=== PATIENT | male | born 1980 | race African-American/Black ===

== ENCOUNTER 2019-07-03 12:13 | Inpatient (IN) | payer OTHER ==
[~2019-07-03] VITALS: Ht 172.7 cm; Wt 70.3 kg
[2019-07-03] MEDS ORDERED: LISINOPRIL20 MG ORAL (12:14)
[2019-07-03] MEDS ORDERED: METFORMIN HCL500 M4 ORAL (12:14)
[2019-07-03 12:17] VITALS: BP 185/117
--- NOTE | 2019-07-03 12:17 | NUR ---
ED Nurse Note: PT FROM HOME AND BROUGHT IN BY AMBULANCE CAME IN DUE TO BODY WEAKNESS X 3 DAYS. DENIES DIARRHEA OR VOMITING BUT STATES THAT HE FELT NAUSEOUS THIS MORNING. HX OF DM. AAO X4, FOLLOWS COMMANDS, SKIN IS WARM AND SLIGHLTY DIAPHORETIC. DR BYRNE AT THE BED SIDE.
--- NOTE | 2019-07-03 12:25 | Emergency Room Report ---
History of Present Illness General Chief Complaint: Generalized Weakness Source: Patient Present Illness HPI Patient presents with weakness. He has been vomiting and had diarrhea. He has had a slight cough but denies chest pain. 2 months ago he got a flu vaccination. The patient is diabetic and hypertensive. He takes metformin and lisinopril. He was unable to take his blood pressure medication this morning. He denies any blood in his stool. This nonproductive cough. Denies chest pain. He feels weak and dizzy when he stands. Patient denies body pain. He did take medicine for diabetes. No polyuria or polydipsia. No sore throat, chest pain, dysuria, shortness of breath, joint pain, rashes, depression, anxiety, visual changes, headache. No recent travel or unusual foods. Allergies: Coded Allergies: No Known Allergies (Unverified , 07/03/19) Patient History Past Medical History: see triage record Social History: Denies: smoking, alcohol use, drug use Social History Narrative Not working Reviewed Nursing Documentation: PMH: Agreed; PSxH: Agreed Nursing Documentation-PMH Hx Hypertension: Yes Hx Diabetes: Yes Review of Systems All Other Systems: negative except mentioned in HPI Physical Exam Vital Signs Date Time Temp Pulse Resp B/P (MAP) Pulse Ox O2 Delivery O2 Flow Rate FiO2 07/03/19 12:07 98.2 134 19 179/104 (129) 100 Room Air Skin temperature feels hotter than recorded temperature. Sp02 EP Interpretation: reviewed, normal General Appearance: mild distress, other - Diaphoretic Head: normocephalic Eyes: bilateral eye normal inspection, bilateral eye PERRL, bilateral eye EOMI ENT: moist mucus membranes Neck: supple Respiratory: chest non-tender, lungs clear, normal breath sounds Cardiovascular #1: no edema, tachycardia Cardiovascular #2: 2+ radial (R) Gastrointestinal: normal inspection, non tender, no mass, non-distended, decreased bowel sounds Genitourinary: no CVA tenderness Musculoskeletal: back normal, normal range of motion, gait/station normal Neurologic: alert, oriented x3, grossly normal Psychiatric: mood/affect normal Skin: no rash, diaphoresis, warm/dry Procedures Critical Care Time Critical Care Time Total Critical Care Time: 45 min bedside evaluation and treatment excludes procedures (EKG). Reason for critical care: Sepsis resuscitation and treatment Possible complications: hypotension, hypertension, VT, shock, arrhythmias, metabolic acidosis, end organ damage, respiratory failure. Interventions: Fluid bolus and hydration, 4 antibiotics, Tylenol repeat evaluations Course: Patient presents with weakness fever chills nausea vomiting diarrhea. Initial evaluation for sepsis with fluid resuscitation begun. Lactic acid returns extremely elevated. Antibiotics begun to cover GI source. Repeat evaluation after urinalysis and Levaquin added. Blood pressure high in consideration of treatment however in the face of sepsis reluctant to do so. Blood pressure and pulse rate improved with treatment. Discussed with admitting physician. Discussed with family. Repeat lactate improved but still elevated. Consultations: nursing staff, EMS, family, admitting physician Performed by: Dr. Porter Tolerated well condition = critical Medical Decision Making Diagnostic Impression: Primary Impression: Sepsis Qualified Codes: A41.9 - Sepsis, unspecified organism Additional Impressions: UTI (urinary tract infection) Qualified Codes: N39.0 - Urinary tract infection, site not specified Diabetes Qualified Codes: E11.9 - Type 2 diabetes mellitus without complications HTN (hypertension) Qualified Codes: I10 - Essential (primary) hypertension Nausea vomiting and diarrhea ER Course Patient presents with febrile illness with nausea vomiting diarrhea with history of diabetes. Differential includes sepsis, gastroenteritis, other occult infection, diabetic ketoacidosis amongst others. Evaluation with EKG, chest x-ray and labs. Fluid bolus ordered along with Tylenol. Abdomen is nonsurgical at this time. Abdominal exam is nonsurgical at this time. EKG was sinus tachycardia. Chest x-ray no infiltrates. Labs with elevated white count. Lactic acid 7.2. SEPSIS RE-EVALUATION: Called with lactic acid 7. Fluid boluses administered. Patient's mentation is good. Other labs are pending. Starting broad-spectrum antibiotics to cover GI source. I, Pastor Porter MD, Performed the Sepsis Re- evaluation at 13:15. Pyuria. Will add levaquin. Repeat lactic acid better. Continued fluid resuscitation. BP high. 160/90. Still tachycardic. I am reluctant to treat BP as patient is septic and seems to need increased cardiac output. 14:49. Blood pressure improving and pulse rate improving. Discussed findings with patient. Patient admitted to stepdown unit Dr. Winter. Laboratory Tests Test 07/03/19 12:30 07/03/19 13:20 07/03/19 13:45 White Blood Count 12.5 K/UL (4.8-10.8) H Red Blood Count 4.90 M/UL (4.70-6.10) Hemoglobin 15.8 G/DL (14.2-18.0) Hematocrit 46.2 % (42.0-52.0) Mean Corpuscular Volume 94 FL (80-99) Mean Corpuscular Hemoglobin 32.2 PG (27.0-31.0) H Mean Corpuscular Hemoglobin Concent 34.1 G/DL (32.0-36.0) Red Cell Distribution Width 11.2 % (11.6-14.8) L Platelet Count 272 K/UL (150-450) Mean Platelet Volume 6.1 FL (6.5-10.1) L Neutrophils (%) (Auto) % (45.0-75.0) Lymphocytes (%) (Auto) % (20.0-45.0) Monocytes (%) (Auto) % (1.0-10.0) Eosinophils (%) (Auto) % (0.0-3.0) Basophils (%) (Auto) % (0.0-2.0) Differential Total Cells Counted 100 Neutrophils % (Manual) 81 % (45-75) H Lymphocytes % (Manual) 16 % (20-45) L Monocytes % (Manual) 3 % (1-10) Eosinophils % (Manual) 0 % (0-3) Basophils % (Manual) 0 % (0-2) Band Neutrophils 0 % (0-8) Platelet Estimate Adequate Platelet Morphology Normal Red Blood Cell Morphology Normal Prothrombin Time 10.6 SEC (9.30-11.50) Prothrombin Time INR 1.0 (0.9-1.1) PTT 26 SEC (23-33) Sodium Level 144 MMOL/L (136-145) Potassium Level 3.5 MMOL/L (3.5-5.1) Chloride Level 102 MMOL/L (98-107) Carbon Dioxide Level 26 MMOL/L (21-32) Anion Gap 16 mmol/L (5-15) H Blood Urea Nitrogen 16 mg/dL (7-18) Creatinine 1.2 MG/DL (0.55-1.30) Estimate Glomerular Filtration Rate > 60 mL/min (>60) Glucose Level 131 MG/DL (74-106) H Lactic Acid Level 7.20 mmol/L (0.4-2.0) H 5.10 mmol/L (0.66-2.22) H Calcium Level 9.4 MG/DL (8.5-10.1) Magnesium Level 1.4 MG/DL (1.8-2.4) L Total Bilirubin 0.4 MG/DL (0.2-1.0) Aspartate Amino Transferase (AST) 34 U/L (15-37) Alanine Aminotransferase (ALT) 47 U/L (12-78) Alkaline Phosphatase 45 U/L (46-116) L Total Creatine Kinase 62 U/L (26-308) Troponin I 0.000 ng/mL (0.000-0.056) Pro-B-Type Natriuretic Peptide 8 pg/mL (0-125) Total Protein 7.9 G/DL (6.4-8.2) Albumin 4.0 G/DL (3.4-5.0) Globulin 3.9 g/dL Albumin/Globulin Ratio 1.0 (1.0-2.7) Lipase 132 U/L (73-393) Urine Color Yellow Urine Appearance Clear Urine pH 5 (4.5-8.0) Urine Specific [place]ion 1.025 (1.005-1.035) Urine Protein 3+ (NEGATIVE) H Urine Glucose (UA) Negative (NEGATIVE) Urine Ketones 2+ (NEGATIVE) H Urine Blood 2+ (NEGATIVE) H Urine Nitrite Negative (NEGATIVE) Urine Bilirubin Negative (NEGATIVE) Urine Urobilinogen Normal MG/DL (0.0-1.0) Urine Leukocyte Esterase 1+ (NEGATIVE) H Urine RBC 2-4 /HPF (0 - 0) H Urine WBC 5-10 /HPF (0 - 0) H Urine Squamous Epithelial Cells Occasional /LPF Urine Bacteria Occasional /HPF (NONE) Microbiology Date/Time Source Procedure Growth Status 07/03/19 12:30 Nasal Nares - Final Complete 07/03/19 12:30 Nasal Nares - Final Complete EKG Diagnostic Results Rate: tachycardiac Rhythm: NSR ST Segments: no acute changes Rhythm Strip Diag. Results EP Interpretation: yes Rhythm: no PVC's, no ectopy, other - ST Chest X-Ray Diagnostic Results Chest X-Ray Diagnostic Results : Chest X-Ray Ordered: Yes # of Views/Limited/Complete: 1 View Indication: Other EP Interpretation: Yes Interpretation: no consolidation, no effusion, no pneumothorax Impression: No acute disease Electronically Signed by: Electronically signed by Pastor Porter MD Last Vital Signs Date Time Temp Pulse Resp B/P (MAP) Pulse Ox O2 Delivery O2 Flow Rate FiO2 07/03/19 17:47 Room Air 07/03/19 17:30 98.3 81 16 145/86 97 Status: improved Disposition: ADMITTED INPATIENT Condition: Critical Pastor Porter MD Jul 03, 2019 12:25
[2019-07-03] MEDS ORDERED: Sodium Chloride 1,900 ML IVLG ONE (12:30)
[2019-07-03 12:43] LABS: HEMATOCRIT 46.2 % (42.0-52.0); HEMOGLOBIN 15.8 G/DL (14.2-18.0); MEAN CORPUSCULAR VOLUME 94 FL (80-99); PLATELET COUNT 272 K/UL (150-450); RED CELL DISTRIBUTION WIDTH 11.2 % (11.6-14.8); WHITE BLOOD COUNT 12.5 K/UL (4.8-10.8)
--- NOTE | 2019-07-03 12:46 | NUR ---
ED Nurse Note: COLLECTED BLOOD AND FLU SWAB THEN SENT.
[2019-07-03 12:57] LABS: ANION GAP 16 mmol/L (5-15); BLOOD UREA NITROGEN 16 mg/dL (7-18); CALCIUM 9.4 MG/DL (8.5-10.1); CARBON DIOXIDE 26 MMOL/L (21-32); CHLORIDE 102 MMOL/L (98-107); CREATININE 1.2 MG/DL (0.55-1.30); POTASSIUM 3.5 MMOL/L (3.5-5.1); SODIUM 144 MMOL/L (136-145)
[2019-07-03 13:08] LABS: ALANINE AMINOTRANSFERASE 47 U/L (12-78); ALKALINE PHOSPHATASE 45 U/L (46-116); ASPARTATE AMINO TRANSFERASE 34 U/L (15-37); BILIRUBIN,TOTAL 0.4 MG/DL (0.2-1.0); CREATINE KINASE 62 U/L (26-308)
--- NOTE | 2019-07-03 13:12 | NUR ---
ED Nurse Note: pt reminded to provide urine sample.
[2019-07-03] MEDS ORDERED: Vancomycin 1 GM in NS 275 ML IVPB ONE (13:30)
[2019-07-03] MEDS ORDERED: Piperacillin/Tazobactam 3.375 GM in NS 110 ML IVPB ONE (13:30)
--- NOTE | 2019-07-03 13:46 | NUR ---
ED Nurse Note: COLLECTED URINE THEN SENT.
[2019-07-03 14:16] LABS: APPEARANCE,URINE CLEAR; BILIRUBIN, URINE NEGATIVE (NEGATIVE); GLUCOSE, URINE (UA) NEGATIVE (NEGATIVE); KETONES,URINE 2+ (NEGATIVE); LEUKOCYTE ESTERASE ,URINE 1+ (NEGATIVE); NITRITE,URINE NEGATIVE (NEGATIVE); PH,URINE 5 (4.5-8.0); PROTEIN,URINE 3+ (NEGATIVE); UROBILINOGEN,URINE NORMAL MG/DL (0.0-1.0)
[2019-07-03 14:24] LABS: COLOR,URINE YELLOW
--- NOTE | 2019-07-03 14:29 | Diagnostic Imaging Report ---
Indication: Chest pain Technique: One view of the chest Comparison: none Findings: Lungs and pleural spaces are clear. Heart size is normal. Impression: No acute process
[2019-07-03 14:30] VITALS: BP 160/93
--- NOTE | 2019-07-03 14:48 | NUR ---
ED Nurse Note: DR BYRNE AWARE OF BP 160/93.
[2019-07-03 16:20] VITALS: BP 149/92
--- NOTE | 2019-07-03 17:27 | NUR ---
ED Nurse Note: REPORT GIVEN TO DAVID ANDERSEN OF [facility].
--- NOTE | 2019-07-03 17:30 | NUR ---
NURSE NOTES: Received PT and report from CHRISTY Harris RN; PT A/O x 4; RA no respiratory distress noted; BP 168/115; weight of PT 163.2lbs; HR 90; T 99.2 axillary; able to ambulate by self to bathroom; placed on cardiac monitoring; head to toe assessment done no wounds present; PT has HX of DM; HTN; PT report he is on Lisinopril 20mg once daily; Metformin 500mg BID. PT is very cooperative; non combative; PT stuff is at bedside. Will continue to monitor PT.
--- NOTE | 2019-07-03 18:43 | NUR ---
NURSE NOTES: Called MD Maggy for orders; covering MD slava Butt MD; brief PT admitting dx / hx given; asked for call back for orders for PT. VICTOR M Rose made aware.
--- NOTE | 2019-07-03 19:25 | NUR ---
HAND-OFF: Report and PT given to NATHALY Agosto; endorsed message left with MD Maggy; sergio Butt MD covering tonight, awaiting MD orders for PT.
--- NOTE | 2019-07-03 19:35 | NUR ---
NURSE NOTES: Received patient from NATHALY Talavera. patient is observed resting in bed, AO X4, denies pain at this time. patient is on room air, tolerating well. no s/sx of respiratory distress noted at this time. awake overnight monitor shows NSR at this time, with current heart rate of 74. no s/sx of acute cardiac distress noted. urinal at bedside. LAC 20 g IV site is patent and intact, asymptomatic. bed in lowest position and locked, siderails up X3, call light within reach. will follow up with MD regarding admission orders. patient is in stable condition. will continue to monitor.
--- NOTE | 2019-07-03 19:42 | NUR ---
NURSE NOTES: Left message for Dr. Winter regarding admission orders. awaiting call back.
[2019-07-03 20:00] VITALS: BP 156/93
--- NOTE | 2019-07-03 20:51 | NUR ---
NURSE NOTES: left follow up message for Dr. Winter regarding admission orders. awaiting call back.
--- NOTE | 2019-07-03 21:17 | NUR ---
NURSE NOTES: Received admission orders from Dr. Winter. will carry out.
[2019-07-03] MEDS: Piperacillin/Tazobactam 3.375 GM in NS 110 ML IVPB SCH (23:50)
[2019-07-04] VITALS (7 sets, daily range): BP systolic 149–186; BP diastolic 87–110
[2019-07-04 02:07] LABS: BASOPHILS % (AUTO) 0.8 % (0.0-2.0); HEMATOCRIT 40.5 % (42.0-52.0); LYMPHOCYTES % (AUTO) 9.9 % (20.0-45.0); MEAN CORPUSCULAR VOLUME 94 FL (80-99); MONOCYTES % (AUTO) 9.3 % (1.0-10.0); PLATELET COUNT 187 K/UL (150-450); RED BLOOD COUNT 4.32 M/UL (4.70-6.10); RED CELL DISTRIBUTION WIDTH 11.2 % (11.6-14.8); WHITE BLOOD COUNT 9.3 K/UL (4.8-10.8)
[2019-07-04 02:18] LABS: ANION GAP 7 mmol/L (5-15); BLOOD UREA NITROGEN 7 mg/dL (7-18); CALCIUM 8.1 MG/DL (8.5-10.1); CARBON DIOXIDE 29 MMOL/L (21-32); CHLORIDE 103 MMOL/L (98-107); POTASSIUM 2.9 MMOL/L (3.5-5.1); SODIUM 139 MMOL/L (136-145)
--- NOTE | 2019-07-04 03:04 | NUR ---
NURSE NOTES: left message informing Dr. Winter of patient's potassium level of 2.9. awaiting call back.
--- NOTE | 2019-07-04 03:21 | NUR ---
NURSE NOTES: Received orders from Dr. Winter regarding patient's potassium level. will carry out.
[2019-07-04] MEDS: Vancomycin 750mg/NS 275ml IVPB SCH ×4 (04:43→17:27)
[2019-07-04] MEDS: NovoLOG Insulin Flexpen SUBQ SCH ×4 (06:30→21:00)
[2019-07-04] MEDS: Piperacillin/Tazobactam 3.375 GM in NS 110 ML IVPB SCH ×3 (06:42→21:54)
--- NOTE | 2019-07-04 08:30 | NUR ---
HAND-OFF: Report given to NATHALY Fraser. patient is in stable condition.
[2019-07-04] MEDS: metFORMIN 500mg tab ORAL SCH ×2 (09:21→17:28)
[2019-07-04] MEDS: Lisinopril 20mg tab ORAL SCH (09:21)
[2019-07-04] MEDS: Heparin 5000 units/ml inj SUBQ SCH ×2 (09:23→20:46)
--- NOTE | 2019-07-04 15:23 | NUR ---
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 98.6 HR 116 RR 15 B/P 160/93 WBC 12.4 AGAP 16 MAGNESIUM 1.4 UA+ PROTEIN,KETONES,BLOOD,LEUKOCYTE ESTERASE,RBC,WBC CXR= NO ACUTE DISEASE IS: IV BOLUS NS X 2 LITERS ZOSYN IV VANCO IV FLAGYL IV ZOFRAN IV TYLENOL PO ADMITTED TO STEP DOWN@ 1730 STEP DOWN STATUS8 DCP RETURN HOME
--- NOTE | 2019-07-04 15:30 | History and Physical Report ---
DATE OF ADMISSION: 07/03/2019 REASON FOR ADMISSION: Possible sepsis. HISTORY OF PRESENT ILLNESS: This is a 39-year-old male presented to the emergency room. The patient noted to have vomiting and diarrhea. The patient also had slight cough. The patient does have history of diabetes and hypertension. Currently is comfortable. No abdominal pain. No further diarrhea. The patient felt somewhat dizzy. The patient's care discussed and reviewed. PAST MEDICAL HISTORY: Essentially negative. MEDICATIONS: Reviewed and reconciled. ALLERGIES: Reviewed and reconciled. SOCIAL HISTORY: Nonsmoker and nondrinker. No drug use. REVIEW OF SYSTEMS: All 10 points reviewed and otherwise negative. FAMILY HISTORY: Otherwise noncontributory to the above with the exception of negative heart disease. PHYSICAL EXAMINATION: GENERAL: A well-developed male, otherwise comfortable. VITAL SIGNS: Reviewed. Blood pressure elevated 157/87, temperature 99.2, pulse 65, respirations 18. HEENT: Negative. Extraocular movements grossly intact. NECK: Supple. LUNGS: Fairly clear and symmetric. CARDIAC: S1, S2. Regular rate and rhythm. ABDOMEN: Soft, nontender, nondistended. EXTREMITIES: No edema. LABORATORY DATA: Reviewed. MEDICATIONS: Reviewed. IMPRESSION: 1. Diabetes. 2. Hypertension. 3. Likely viral syndrome. Doubt sepsis with noted vomiting and diarrhea. Possible gastroenteritis. 4. History of flu vaccination. RECOMMENDATIONS: Supportive care. Empiric antibiotics. Follow up laboratories. ID evaluation for clearance. Monitor and maintain medications. IV hydration and will hope to improve and discharge once cleared by Infectious Disease. Thom Winter M.D. DR: KAILA JOB#: [id number] CC:
--- NOTE | 2019-07-04 16:00 | Consultation ---
DATE OF CONSULTATION: 07/04/2019 INFECTIOUS DISEASES CONSULTATION CONSULTING PHYSICIAN: Nii Garcia M.D. REFERRING PHYSICIAN: Thom Winter M.D. REASON FOR CONSULTATION: Possible gastroenteritis and urinary tract infection. HISTORY OF PRESENTING ILLNESS: This is a 39-year-old gentleman with history of hypertension who comes in with cough along with shortness of breath. He also had some nausea, vomiting, and diarrhea. An Infectious Diseases consultation has been obtained for possible gastroenteritis. PAST MEDICAL HISTORY: 1. History of diabetes. 2. History of hypertension. SOCIAL HISTORY: He does not smoke. He drinks alcohol socially. No history of drug use. The patient denies eating any poorly cooked food. FAMILY HISTORY: Noncontributory. REVIEW OF SYSTEMS: RESPIRATORY: He denies any fever or chills. He has cough. He has shortness of breath. No chest pain. CARDIAC: No chest pain. No palpitations. No dizziness. No syncope. GASTROINTESTINAL: He had nausea and vomiting. He also has diarrhea. MEDICATIONS: As an inpatient, he is on lisinopril, metformin, subcutaneous heparin, Protonix, insulin, vancomycin, Zosyn, Tylenol, clonidine, Mylanta. ALLERGIES: No known drug allergies. PHYSICAL EXAMINATION: VITAL SIGNS: Temperature of 98.1, T-max of 99.2, pulse 71, respiratory of 20, blood pressure 144/99, O2 saturation of 98%. HEENT: Pupils equally reactive to light and accommodation. Mouth appears clean without thrush. NECK: Supple. No adenopathy. No JVD. CARDIOVASCULAR: Regular rate and rhythm. No murmurs. LUNGS: Clear to auscultation bilaterally. No crackles. No wheezes. ABDOMEN: Soft and nontender. No organomegaly. EXTREMITIES: No cyanosis, no clubbing, no edema. LABORATORY DATA: White count of 12.5 on 07/03/2019, white count 9.3 today, hemoglobin 14, hematocrit 40.5, MCV 94, platelet count of 187, neutrophils of 79%. Sodium 139, potassium 2.9, chloride 103, bicarb 29, BUN 7, creatinine 1, glucose 103. Calcium 8.1. Total bilirubin 0.4, AST 34, ALT 47, alkaline phosphatase 45. CK of 62. Troponin 0. Total protein 7.9. Albumin 4. Lipase of 132. UA showing 5 to 10 white cells. Chest x-ray showing no acute process. ASSESSMENT: 1. This is a 39-year-old gentleman with diabetes and hypertension, who comes in with nausea, vomiting, and diarrhea along with cough and shortness of breath with concern regarding gastroenteritis as a possibility. 2. We would also like to rule out urinary tract infection as a possibility. 3. Diabetes. 4. Hypertension. PLAN: 1. Continue vancomycin and Zosyn. 2. We will order stool for C. difficile colitis and stool cultures. 3. We will order urine cultures. 4. We will follow up cultures and adjust antibiotics accordingly. I would like to thank, Dr. Winter, for this consultation. Nii Garcia M.D. DR: TRENTON JOB#: [id number] CC: Thom Winter M.D.; Fax#: [phone]
--- NOTE | 2019-07-04 19:10 | NUR ---
HAND-OFF: Report given to NATHALY Delvalle,patient asleep,normal sinus rythm.
--- NOTE | 2019-07-04 19:30 | NUR ---
NURSE NOTES: Received Pt is resting on the bed and awake alert. IV site intact and no sign of infiltration noted. on running with NS@100cc/hr. Denied pain at this time. On Tele monitor with SR. Explained Pt regarding stool and urine sample collection and verbally understanding. Placed fall precaution. Will continue to care plan.
--- NOTE | 2019-07-04 20:30 | NUR ---
NURSE NOTES: PT's BP keeps high 170-180/100-110mmHg. Left message to Dr. Winter and awaiting call back.
--- NOTE | 2019-07-04 21:25 | NUR ---
NURSE NOTES: Get call back from Dr. Marie and new order received.
[2019-07-05] VITALS: BP 159/98
--- NOTE | 2019-07-05 02:00 | NUR ---
NURSE NOTES: Pt is sleeping on the bed and no sign of acute distress noted.
[2019-07-05 04:00] VITALS: BP 152/98
[2019-07-05 04:18] LABS: BASOPHILS % (AUTO) 0.8 % (0.0-2.0); EOSINOPHILS % (AUTO) 4.2 % (0.0-3.0); HEMATOCRIT 40.5 % (42.0-52.0); HEMOGLOBIN 14.2 G/DL (14.2-18.0); LYMPHOCYTES % (AUTO) 15.9 % (20.0-45.0); MEAN CORPUSCULAR VOLUME 94 FL (80-99); MONOCYTES % (AUTO) 10.6 % (1.0-10.0); NEUTROPHILS % (AUTO) 68.5 % (45.0-75.0); PLATELET COUNT 157 K/UL (150-450); RED BLOOD COUNT 4.29 M/UL (4.70-6.10); RED CELL DISTRIBUTION WIDTH 11.3 % (11.6-14.8); WHITE BLOOD COUNT 5.7 K/UL (4.8-10.8)
[2019-07-05 04:44] LABS: ANION GAP 6 mmol/L (5-15); BLOOD UREA NITROGEN 7 mg/dL (7-18); CALCIUM 8.5 MG/DL (8.5-10.1); CARBON DIOXIDE 29 MMOL/L (21-32); CHLORIDE 103 MMOL/L (98-107); POTASSIUM 2.9 MMOL/L (3.5-5.1); SODIUM 137 MMOL/L (136-145)
[2019-07-05] MEDS ORDERED: Vancomycin 750mg/NS 275ml IVPB SCH ×2 (05:15)
[2019-07-05] MEDS: NovoLOG Insulin Flexpen SUBQ SCH ×4 (06:30→21:00)
[2019-07-05] MEDS: Piperacillin/Tazobactam 3.375 GM in NS 110 ML IVPB SCH ×3 (06:49→21:26)
--- NOTE | 2019-07-05 06:57 | NUR ---
NURSE NOTES: Noted potassium level is 2.9. Notified to Maggy Barahona and new order received.
--- NOTE | 2019-07-05 07:00 | NUR ---
NURSE NOTES: received patient report from rubio obrien. patient is on bed asleep. not in acute distress. no arrythmias reported during the night.bed is low and locked for safety. will follow plan of care.
--- NOTE | 2019-07-05 07:10 | NUR ---
HAND-OFF: Report given to NATHALY Owen. Pt is resting on the bed and no sign of acute distress noted.
[2019-07-05 08:00] VITALS: BP 133/97
[2019-07-05] MEDS: metFORMIN 500mg tab ORAL SCH ×2 (08:24→18:13)
[2019-07-05] MEDS: Lisinopril 20mg tab ORAL SCH (08:25)
[2019-07-05] MEDS: Heparin 5000 units/ml inj SUBQ SCH ×2 (08:27→20:38)
--- NOTE | 2019-07-05 11:04 | Infectious Diseases Prog Note ---
Assessment/Plan Assessment/Plan antibiotics : vancomycin iv, zosyn A 1. gastroenteritis resolving 2. diabetes mellitus 3, hypertension 4. leucocytosis resolved P 1. d/c iv vancomycin 2. continue zosyn in hospital for now, dc soon 3. will follow up cultures Subjective Constitutional: Denies: fever, chills Respiratory: Denies: shortness of breath, dry cough Gastrointestinal/Abdominal: Reports: diarrhea - decreased; Denies: nausea, vomiting Allergies: Coded Allergies: No Known Allergies (Unverified , 07/03/19) Objective Vital Signs Last 24 Hour Vital Signs Date Time Temp Pulse Resp B/P (MAP) Pulse Ox O2 Delivery O2 Flow Rate FiO2 07/05/19 08:25 86 133/97 07/05/19 08:25 133/97 07/05/19 08:00 Room Air 07/05/19 08:00 97.3 86 21 133/97 (109) 97 07/05/19 07:49 84 07/05/19 04:00 Room Air 07/05/19 04:00 66 07/05/19 04:00 98.7 66 20 152/98 (116) 98 07/05/19 00:00 99.0 60 20 159/98 (118) 98 07/05/19 00:00 Room Air 07/05/19 00:00 61 07/04/19 21:54 60 161/95 07/04/19 20:43 180/110 07/04/19 20:00 69 07/04/19 20:00 Room Air 07/04/19 20:00 99.0 65 20 185/110 (135) 98 07/04/19 16:34 179/100 07/04/19 16:29 98.1 65 20 179/100 (126) 98 07/04/19 16:27 Room Air 07/04/19 16:00 66 07/04/19 13:59 77 18 158/94 (115) 98 07/04/19 12:32 186/108 07/04/19 12:17 98.0 68 20 186/108 (134) 98 07/04/19 12:00 Room Air 07/04/19 12:00 83 Height (Feet): 5 Height (Inches): 8.00 Weight (Pounds): 155 Respiratory/Chest: lungs clear Cardiovascular: normal rate, regular rhythm, no gallop/murmur Abdomen: soft, non tender Extremities: no edema Microbiology Date/Time Source Procedure Growth Status 07/03/19 12:37 Blood Blood Culture - Preliminary NO GROWTH AFTER 24 HOURS Resulted 07/03/19 12:30 Blood Blood Culture - Preliminary NO GROWTH AFTER 24 HOURS Resulted 07/03/19 12:30 Nasal Nares - Final Complete 07/03/19 12:30 Nasal Nares - Final Complete 07/04/19 20:00 Stool Clostridium difficile Toxin Assay - Final Complete 07/04/19 20:00 Urine,Clean Catch Urine Culture - Preliminary NO GROWTH Resulted Laboratory Tests Test 07/05/19 03:40 White Blood Count 5.7 K/UL (4.8-10.8) Red Blood Count 4.29 M/UL (4.70-6.10) L Hemoglobin 14.2 G/DL (14.2-18.0) Hematocrit 40.5 % (42.0-52.0) L Mean Corpuscular Volume 94 FL (80-99) Mean Corpuscular Hemoglobin 33.1 PG (27.0-31.0) H Mean Corpuscular Hemoglobin Concent 35.1 G/DL (32.0-36.0) Red Cell Distribution Width 11.3 % (11.6-14.8) L Platelet Count 157 K/UL (150-450) Mean Platelet Volume 6.2 FL (6.5-10.1) L Neutrophils (%) (Auto) 68.5 % (45.0-75.0) Lymphocytes (%) (Auto) 15.9 % (20.0-45.0) L Monocytes (%) (Auto) 10.6 % (1.0-10.0) H Eosinophils (%) (Auto) 4.2 % (0.0-3.0) H Basophils (%) (Auto) 0.8 % (0.0-2.0) Sodium Level 137 MMOL/L (136-145) Potassium Level 2.9 MMOL/L (3.5-5.1) L Chloride Level 103 MMOL/L (98-107) Carbon Dioxide Level 29 MMOL/L (21-32) Anion Gap 6 mmol/L (5-15) Blood Urea Nitrogen 7 mg/dL (7-18) Creatinine 1.0 MG/DL (0.55-1.30) Estimat Glomerular Filtration Rate > 60 mL/min (>60) Glucose Level 119 MG/DL (74-106) H Calcium Level 8.5 MG/DL (8.5-10.1) Vancomycin Level Trough 8.0 ug/mL (5.0-12.0) Current Medications Medications (Trade) Dose Ordered Sig/Victor Manuel Route PRN Reason Start Time Stop Time Status Last Admin Dose Admin Acetaminophen (Tylenol) 650 mg Q4H PRN ORAL Mild Pain/Temp > 100.5 07/03/19 21:45 08/02/19 21:44 07/04/19 20:47 Al Hydroxide/Mg Hydroxide (Mylanta) 30 ml Q4H PRN ORAL constipation 07/03/19 21:45 08/02/19 21:44 Amlodipine Besylate (Norvasc) 10 mg DAILY ORAL 07/04/19 21:30 08/03/19 21:29 07/05/19 08:25 Clonidine HCl (Catapres Tab) 0.1 mg Q4H PRN ORAL SBP >150 07/03/19 21:45 08/02/19 21:44 07/04/19 20:43 Dextrose (Dextrose 50%) 25 ml Q30M PRN IV Hypoglycemia 07/03/19 21:45 08/02/19 21:44 Dextrose (Dextrose 50%) 50 ml Q30M PRN IV Hypoglycemia 07/03/19 21:45 08/02/19 21:44 Heparin Sodium (Porcine) (Heparin 5000 units/ml) 5,000 units EVERY 12 HOURS SUBQ 07/04/19 09:00 08/03/19 08:59 07/05/19 08:27 Insulin Aspart (NovoLOG) BEFORE MEALS AND HS SUBQ 07/04/19 06:30 08/03/19 06:29 07/04/19 16:45 Lisinopril (PriniviL) 20 mg DAILY ORAL 07/04/19 09:00 08/03/19 08:59 07/05/19 08:25 Magnesium Sulfate 100 ml @ 100 mls/hr Q1H IVPB 07/05/19 10:00 07/05/19 11:59 07/05/19 10:05 Metformin HCl (Glucophage) 500 mg BID ORAL 07/04/19 09:00 08/03/19 08:59 07/05/19 08:24 Pantoprazole (Protonix) 40 mg DAILY ORAL 07/04/19 09:00 08/03/19 08:59 07/05/19 08:24 Piperacillin Sod/ Tazobactam Sod 3.375 gm/Sodium Chloride 110 ml @ 27.5 mls/hr Q8HR IVPB 07/03/19 22:00 07/10/19 21:59 07/05/19 06:49 Sodium Chloride 1,000 ml @ 100 mls/hr Q10H IV 07/03/19 21:45 08/02/19 21:44 07/05/19 02:56 Vancomycin HCl (Vanco rx to dose) 1 ea DAILY PRN MISC Per rx protocol 07/03/19 21:45 08/02/19 21:44 Vancomycin HCl 750 mg/Sodium Chloride 275 ml @ 183.333 mls/hr 0500,1300,2100 IVPB 07/05/19 05:15 07/09/19 04:59 07/05/19 05:17 Nii Garcia MD Jul 05, 2019 11:04
[2019-07-05 11:26] VITALS: BP 162/89
--- NOTE | 2019-07-05 11:51 | General Progress Note ---
Assessment/Plan Assessment/Plan: Diarrhea diabetes hypertension weakness low K PLAN k replaced dc antibiotics IV fluids assess for dc planning impression, plan, and exam edited and reviewed in detail care discussed with RN Subjective Allergies: Coded Allergies: No Known Allergies (Unverified , 07/03/19) Subjective still having diarrhea d/w ID to dc antibiotics K replaced Objective Last 24 Hour Vital Signs Date Time Temp Pulse Resp B/P (MAP) Pulse Ox O2 Delivery O2 Flow Rate FiO2 07/05/19 11:26 98.2 96 20 162/89 (113) 96 96 07/05/19 08:25 86 133/97 07/05/19 08:25 133/97 07/05/19 08:00 Room Air 07/05/19 08:00 97.3 86 21 133/97 (109) 97 07/05/19 07:49 84 07/05/19 04:00 Room Air 07/05/19 04:00 66 07/05/19 04:00 98.7 66 20 152/98 (116) 98 07/05/19 00:00 99.0 60 20 159/98 (118) 98 07/05/19 00:00 Room Air 07/05/19 00:00 61 07/04/19 21:54 60 161/95 07/04/19 20:43 180/110 07/04/19 20:00 69 07/04/19 20:00 Room Air 07/04/19 20:00 99.0 65 20 185/110 (135) 98 07/04/19 16:34 179/100 07/04/19 16:29 98.1 65 20 179/100 (126) 98 07/04/19 16:27 Room Air 07/04/19 16:00 66 07/04/19 13:59 77 18 158/94 (115) 98 07/04/19 12:32 186/108 07/04/19 12:17 98.0 68 20 186/108 (134) 98 07/04/19 12:00 Room Air 07/04/19 12:00 83 Intake and Output 07/04/19 07/05/19 19:00 07:00 Intake Total 1325 ml 1625.000 ml Output Total 1560 ml 2800 ml Balance -235 ml -1175.000 ml Intake Oral 840 ml 240 ml IV Total 485 ml 1385.000 ml Output Urine Total 1560 ml 2800 ml # Voids 2 # Bowel Movements 4 5 Laboratory Tests 07/05/19 03:40: White Blood Count 5.7, Red Blood Count 4.29L, Hemoglobin 14.2, Hematocrit 40.5L , Mean Corpuscular Volume 94, Mean Corpuscular Hemoglobin 33.1H, Mean Corpuscular Hemoglobin Concent 35.1, Red Cell Distribution Width 11.3L, Platelet Count 157, Mean Platelet Volume 6.2L, Neutrophils (%) (Auto) 68.5, Lymphocytes (%) (Auto) 15.9L, Monocytes (%) (Auto) 10.6H, Eosinophils (%) (Auto ) 4.2H, Basophils (%) (Auto) 0.8, Sodium Level 137, Potassium Level 2.9L, Chloride Level 103, Carbon Dioxide Level 29, Anion Gap 6, Blood Urea Nitrogen 7 , Creatinine 1.0, Estimat Glomerular Filtration Rate > 60, Glucose Level 119H, Calcium Level 8.5, Vancomycin Level Trough 8.0 Height (Feet): 5 Height (Inches): 8.00 Weight (Pounds): 155 Objective WDWN NAD clear breath sounds bilaterally without rhonchi or wheeze [id number] without MRG NABS nontender no HSM no CCE nonfocal Thom Winter MD Jul 05, 2019 11:51
--- NOTE | 2019-07-05 13:37 | NUR ---
TRANSFER TO FLOOR: Patient transferred to 302-1, per dr spain order. Report given to eric obrien. Belongings and medications given to rn. Family and or S/O informed of transfer.
--- NOTE | 2019-07-05 13:45 | NUR ---
NURSE NOTES: Pt arrived from [facility] in stable. Belongings list reviewed has 108 on person. IV intact no signs of infiltration. Denies pain at this time. Current plan will be followed
[2019-07-05 16:00] VITALS: BP 144/98
--- NOTE | 2019-07-05 19:47 | NUR ---
NURSE NOTES: Pt required pt teaching in regards to food items that fall in his meal plan Remained in stable condition. Inquired about the Dr coming this shift in regards to be discharged. Per pt tele nurse informed him that Dr Falk will be coming in the evening to visit pt. Informed that labs have improved, discharge date is determined by the Dr.
--- NOTE | 2019-07-05 19:50 | NUR ---
HAND-OFF: Report given to Jaciel ANDERSEN.
[2019-07-05 20:00] VITALS: BP 166/114
--- NOTE | 2019-07-05 20:01 | NUR ---
NURSE NOTES: Received report from NATHALY Jiang. Patient is resting in bed. No s/s of distress. No SOB on room air. IV site intact running fluids. Bed in low and locked position, call light within reach and at bedside. Patient inquiring to go home as soon as possible. Will continue plan of care.
[2019-07-06] VITALS (7 sets, daily range): BP systolic 136–165; BP diastolic 79–106
--- NOTE | 2019-07-06 01:41 | NUR ---
NURSE NOTES: Patient c/o palpitations and inability to relax and sleep. No c/o chest pain, SOB on room air or diaphoreses at this time. VSS taken, HR 77 and BP 145/106mmHg. EKG taken by RT and presented as normal sinus rhythm. Patient given medication per eMAR for headache. Will continue to monitor.
[2019-07-06] MEDS: Piperacillin/Tazobactam 3.375 GM in NS 110 ML IVPB SCH (05:58)
[2019-07-06] MEDS: NovoLOG Insulin Flexpen SUBQ SCH ×2 (06:21→11:30)
--- NOTE | 2019-07-06 06:48 | NUR ---
NURSE NOTES: Patient is walking around room and has no c/o palpitations or dizziness. No c/o pain. Last vital signs HR 69 BP 136/79.
--- NOTE | 2019-07-06 07:43 | NUR ---
HAND-OFF: Report given to Toby Jacques RN. Patient is in stable condition.
--- NOTE | 2019-07-06 07:45 | NUR ---
NURSE NOTES: Received report from NATHALY Grissom. Pt a/o x 4, in bed. Denies any pain at this time. No palpitation, dizziness noted. Lt AC IV is patent. NS is running as ordered. Bed in lowest position, call light within reach. Will continue to monitor.
--- NOTE | 2019-07-06 08:00 | General Progress Note ---
Assessment/Plan Assessment/Plan: Diarrhea diabetes hypertension weakness low K PLAN dc antibiotics per ID encourage fluids assess for dc planning today if cleared BY ID impression, plan, and exam edited and reviewed in detail care discussed with RN Subjective Allergies: Coded Allergies: No Known Allergies (Unverified , 07/03/19) Subjective diarrhea d/w ID still no zosyn Objective Last 24 Hour Vital Signs Date Time Temp Pulse Resp B/P (MAP) Pulse Ox O2 Delivery O2 Flow Rate FiO2 07/06/19 04:00 98.0 69 16 136/79 (98) 100 07/06/19 01:12 77 18 145/106 (119) 100 07/06/19 00:00 97.3 70 18 147/97 (114) 98 07/05/19 20:36 166/114 07/05/19 20:00 Room Air 07/05/19 20:00 98.3 88 20 166/114 (131) 98 07/05/19 16:00 97.8 92 20 144/98 (113) 07/05/19 16:00 Room Air 07/05/19 12:00 Room Air 07/05/19 11:39 98 07/05/19 11:26 98.2 96 20 162/89 (113) 96 96 07/05/19 08:25 86 133/97 07/05/19 08:25 133/97 07/05/19 08:00 Room Air 07/05/19 08:00 97.3 86 21 133/97 (109) 97 Intake and Output 07/05/19 07/06/19 19:00 07:00 Intake Total 540 ml 820 ml Balance 540 ml 820 ml Intake Oral 540 ml 120 ml IV Total 700 ml # Voids 1 1 Height (Feet): 5 Height (Inches): 8.00 Weight (Pounds): 155 Objective WDWN NAD clear breath sounds bilaterally without rhonchi or wheeze [id number] without MRG NABS nontender no HSM no CCE nonfocal Thom Winter MD Jul 06, 2019 08:00
[2019-07-06] MEDS: metFORMIN 500mg tab ORAL SCH (09:00)
[2019-07-06] MEDS ORDERED: Lisinopril 20mg tab ORAL SCH (09:00)
[2019-07-06] MEDS: Heparin 5000 units/ml inj SUBQ SCH (09:01)
--- NOTE | 2019-07-06 09:38 | NUR ---
CASE MANAGEMENT: REVIEW 07/06/2019 SI: LOW K+ . DIARRHEA . HTN 97.7 94 18 152/104 99% ON RA IS: IVF NS @100ML/HR IV ZOSYN @8HR HEPARIN SQ BID LISINOPRIL PO QD NORVASC PO QD METFORMIN PO BID NOVOLOG SQ AC&HS PROTONIX PO QD \: 3E MED SURG UNIT DCP: RETURN HOME PLAN: CONTROL DIARRHEA
--- NOTE | 2019-07-06 11:59 | Infectious Diseases Prog Note ---
Assessment/Plan Assessment/Plan A 1. gastroenteritis resolving 2. diabetes mellitus 3, hypertension 4. leucocytosis resolved 5. Hypokalemia P 1. discontinue Zosyn 3. agree with discharge Subjective ROS Limited/Unobtainable: No Constitutional: Reports: no symptoms Respiratory: Reports: no symptoms Gastrointestinal/Abdominal: Reports: other - green stool Genitourinary: Reports: no symptoms Allergies: Coded Allergies: No Known Allergies (Unverified , 07/03/19) Objective Vital Signs Last 24 Hour Vital Signs Date Time Temp Pulse Resp B/P (MAP) Pulse Ox O2 Delivery O2 Flow Rate FiO2 07/06/19 09:00 Room Air 07/06/19 09:00 152/104 07/06/19 09:00 94 152/104 07/06/19 08:00 97.7 94 18 152/104 (120) 99 07/06/19 04:00 98.0 69 16 136/79 (98) 100 07/06/19 01:12 77 18 145/106 (119) 100 07/06/19 00:00 97.3 70 18 147/97 (114) 98 07/05/19 20:36 166/114 07/05/19 20:00 Room Air 07/05/19 20:00 98.3 88 20 166/114 (131) 98 07/05/19 16:00 97.8 92 20 144/98 (113) 07/05/19 16:00 Room Air 07/05/19 12:00 Room Air Height (Feet): 5 Height (Inches): 8.00 Weight (Pounds): 155 General Appearance: no acute distress HEENT: mucous membranes moist Respiratory/Chest: lungs clear Cardiovascular: normal rate Abdomen: soft, non tender Extremities: no edema Neurologic/Psychiatric: alert, oriented x 3, responsive Microbiology Date/Time Source Procedure Growth Status 07/03/19 12:37 Blood Blood Culture - Preliminary NO GROWTH AFTER 48 HOURS Resulted 07/03/19 12:30 Blood Blood Culture - Preliminary NO GROWTH AFTER 48 HOURS Resulted 07/03/19 12:30 Nasal Nares - Final Complete 07/03/19 12:30 Nasal Nares - Final Complete 07/04/19 20:00 Stool Clostridium difficile Toxin Assay - Final Complete 07/04/19 20:00 Urine,Clean Catch Urine Culture - Preliminary NO GROWTH AFTER 24 HOURS Resulted Current Medications Medications (Trade) Dose Ordered Sig/Victor Manuel Route PRN Reason Start Time Stop Time Status Last Admin Dose Admin Acetaminophen (Tylenol) 650 mg Q4H PRN ORAL Mild Pain/Temp > 100.5 07/05/19 13:45 08/02/19 21:44 07/06/19 01:33 Al Hydroxide/Mg Hydroxide (Mylanta) 30 ml Q4H PRN ORAL constipation 07/05/19 13:45 08/02/19 21:44 Amlodipine Besylate (Norvasc) 10 mg DAILY ORAL 07/06/19 09:00 08/03/19 21:29 07/06/19 09:00 Clonidine HCl (Catapres Tab) 0.1 mg Q4H PRN ORAL SBP >150 07/05/19 13:45 08/02/19 21:44 07/05/19 20:36 Dextrose (Dextrose 50%) 25 ml Q30M PRN IV Hypoglycemia 07/05/19 13:45 08/02/19 21:44 Dextrose (Dextrose 50%) 50 ml Q30M PRN IV Hypoglycemia 07/05/19 13:45 08/02/19 21:44 Heparin Sodium (Porcine) (Heparin 5000 units/ml) 5,000 units EVERY 12 HOURS SUBQ 07/05/19 21:00 08/03/19 08:59 07/06/19 09:01 Insulin Aspart (NovoLOG) BEFORE MEALS AND HS SUBQ 07/05/19 16:30 08/03/19 06:29 Lisinopril (PriniviL) 20 mg DAILY ORAL 07/06/19 09:00 08/03/19 08:59 07/06/19 09:00 Metformin HCl (Glucophage) 500 mg BID ORAL 07/05/19 18:00 08/03/19 08:59 07/06/19 09:00 Pantoprazole (Protonix) 40 mg DAILY ORAL 07/06/19 09:00 08/03/19 08:59 07/06/19 09:00 Piperacillin Sod/ Tazobactam Sod 3.375 gm/Sodium Chloride 110 ml @ 27.5 mls/hr Q8HR IVPB 07/05/19 14:00 07/10/19 21:59 07/06/19 05:58 Sodium Chloride 1,000 ml @ 100 mls/hr Q10H IV 07/05/19 13:30 08/02/19 21:44 07/06/19 09:03 Lester Ross MD Jul 06, 2019 11:59
--- NOTE | 2019-07-06 14:15 | NUR ---
NURSE NOTES: Dr. Winter ordered discharge home. Reconciles home meds, Dr. Winter ordered continue home meds.
--- NOTE | 2019-07-06 16:15 | NUR ---
NURSE NOTES: Informed Dr. Winter regarding BP was 165/103 and clonidine 0.1mg po was given. BP 144/99 checked @1600.
--- NOTE | 2019-07-06 16:25 | NUR ---
NURSE NOTES: No belongings check list in the chart. Belonging checked with pt. IV access removed. Pt discharged in stable condition with his family.
[2019-07-06] MEDS ORDERED: NS 275ml ONE (17:13)
--- NOTE | 2019-07-07 10:38 | Discharge Summary ---
Discharge Summary Discharge Summary _ DATE OF ADMISSION: 07/03/2019 DATE OF DISCHARGE: 07/06/2019 DISCHARGED BY: Dr. Winter REASON FOR ADMISSION: 39 years old male with past medical history of diabetes mellitus and hypertension, presented with vomiting and diarrhea. Patient also reported slight nonproductive cough. No abdominal pain. No blood in the stool. No chest pain. Upon evaluation blood pressure was elevated 179/104 , pulse oximetry was stable on room air p. Patient was tachycardic with heart rate 134. Laboratory work-up revealed leukocytosis WBC 12.5, stable hemoglobin and hematocrit. BUN 16, creatinine 1.2. Glucose 131. Lactic acid 7.2 , repeated 5.1. Magnesium 1.4 . Stable LFT . Troponin negative , pro BNP 8 . EKG revealed sinus tachycardia , no acute ischemic changes. Chest x-ray demonstrated no acute cardiopulmonary pathology. Urinalysis revealed pyuria and occasional bacteria, +3 protein . In emergency department septic work-up was initiated. Patient started on fluid resuscitation, pancultured and started on broad- spectrum antibiotics CONSULTANTS: ID specialist Dr. Garcia HOSPITAL COURSE: Patient admitted to medical surgical floor. Sepsis was doubtful given vomiting and diarrhea , possibly gastroenteritis. Patient had a flu vaccine prior. Empiric antibiotic continued. IV hydration provided. ID specialist followed. Blood cultures were negative. Influenza swab was negative. Stool for C. difficile was negative. Urine culture was negative. Leukocytosis resolved the next day , no fevers. ID specialist recommended discontinue initially started antibiotics. Symptomatic treatment provided. Antiemetic were on board as needed. Patient was able to tolerate diet. Renal parameters and electrolytes were closely monitored , electrolytes corrected as needed /potassium. Nephrotoxins were avoided . Creatinine remained stable. Lactic acid down to 1.1. Blood pressure was managed with calcium channel shonna and RADHIKA inhibitor . Blood pressure improved. Blood sugar was managed with sliding scale of insulin, and remained stable DVT and GI prophylaxis provided. Vomiting sand diarrhea resolved. Patient clinically stabilized and was ready for discharge home. FINAL DIAGNOSES: Likely gastroenteritis-resolved Diabetes mellitus Hypertension Leukocytosis- resolved Lactic acidosis Hypokalemia DISCHARGE MEDICATIONS: See Medication Reconciliation list. DISCHARGE INSTRUCTIONS: Patient was discharged home. Follow-up primary care provider in 1 week. I have been assigned to dictate discharge summary for this account. I was not involved in the patient's management. Leanna Dickinson NP Jul 07, 2019 10:38
== END 2019-07-06 16:25 | disposition home or self-care (01) | DRG 249 ==
LOC: EDBD 12:13 → EMR 12:47 → EDBEDREQSVC 13:18 → EDBEDREQ 13:18 → 2W 13:48 → EDBEDREQ 17:02 → 2W 18:30 → 3E 07-05 13:31
DX: K52.9 Noninfective gastroenteritis and colitis, unspecified (principal); I10 Essential (primary) hypertension; E87.6 Hypokalemia; E11.9 Type 2 diabetes mellitus without complications; E87.2 Acidosis
CPT/HCPCS: 36415; 71045; 80048; 80053; 80202; 81003; 82550; 82962; 83036; 83605; 83690; 83735; 83880; 84484; 85007; 85025; 85610; 85730; 86710; 87040; 87045; 87086; 87324; 93005; 96361; 96365; 96367; 96375; 99291; J1815; J2405; J7030; J8499